=== PATIENT | male | born 1955 | race Caucasian/White ===

== ENCOUNTER 2025-07-25 06:26 | Day surgery (SDC) | payer OTHER, SELFPAY ==
--- NOTE | 2025-07-25 10:04 | ITS.CL.CARDI ---
[facility] - Cardioversion
Cardioversion
Procedure Report:
Date of Procedure:07/25/2025 .
Procedure: Cardioversion.
Indication: Symptomatic persistent atrial fibrillation.
Performing Physician: Katherine Hernandez MD
Technique: The patient was brought to the holding area. Signed informed consent was obtained. A time out was called and performed. The patient was sedated by a member of the anesthesia service. Anticoagulation status was reviewed and was
appropriate. R-2 pads were placed anteriorly and posteriorly. ELIANA didn't show any evidence of STEPHANIE/RAA/RA or RA thrombus A 200 J synchronized biphasic shock restored normal sinus rhythm without significant bradycardia. There were no complications.
Conclusion: Uncomplicated cardioversion from atrial fibrillation to sinus rhythm.
Recommendation: Routine post cardioversion care. Continue termite inspector anticoagulation.
cc: Favian
[2025-07-25 11:44] VITALS: BMI 33.7
== END 2025-07-25 09:41 | disposition home or self-care (01) ==
LOC: CATH 06:26
PROVIDERS: ATTENDING PHYSICIAN Internal Medicine Interventional Cardiology; FAMILY PHYSICIAN Family Medicine; OTHER PHYSICIAN Family Medicine
DX: I48.19 Other persistent atrial fibrillation (principal); I08.3 Combined rheumatic disorders of mitral, aortic and tricuspid valves; I49.8 Other specified cardiac arrhythmias; Z79.01 Long term (current) use of anticoagulants; Z79.899 Other long term (current) drug therapy
CPT/HCPCS: 93312; 93320; 93325; 92960; 93005